=== PATIENT | female | born 1990 | race Caucasian/White ===

== ENCOUNTER 2020-01-06 07:15 | Inpatient (IN) | payer MEDICAID ==
[~2020-01-06] VITALS: Ht 162.6 cm; Wt 90.7 kg
[2020-01-06 08:39] LABS: HEMOGLOBIN 9.4 g/dL (12-16); MCH 24.9 pg (26.0-34.0); MCHC 30.3 g/dL (31.0-37.0); MCV 82.2 fL (80.0-100.0); MEAN PLATELET VOLUME 9.7 fL (7.4-10.4); RBC 3.77 10x6/uL (4.00-5.40); RDW 16.1 % (11.5-14.5); WBC 10.2 10x3/uL (4.8-10.8)
[2020-01-06 08:41] LABS: BILIRUBIN NEGATIVE (NEGATIVE); GLUCOSE NEGATIVE (NEGATIVE); KETONE NEGATIVE (NEGATIVE); NITRITE NEGATIVE (NEGATIVE); SPECIFIC GRAVITY 1.015 (1.005-1.020); UROBILINOGEN NORMAL (NORMAL)
[2020-01-06 08:59] LABS: UDS - AMPHET NEGATIVE QUAL (NEGATIVE); UDS - BARB NEGATIVE QUAL (NEGATIVE); UDS - BENZO NEGATIVE QUAL (NEGATIVE); UDS - COCAINE NEGATIVE QUAL (NEGATIVE); UDS - OPIATE NEGATIVE QUAL (NEGATIVE); UDS - PCP NEGATIVE QUAL (NEGATIVE); UDS - THC POSITIVE QUAL (NEGATIVE)
[2020-01-06] MEDS ORDERED: PRENAVITE1 TAB PO (15:04)
--- NOTE | 2020-01-06 18:20 | MORECARE ---
CASE MANAGEMENT DISCHARGE SUMMARY PATIENT: RADHA LOPEZ UNIT: [id number] ADM DATE: 01/06/20 AGE: 29 : 90 SEX: F ROOM/BED: D.1276 AUTHOR: REBECA HOLLY PHYSICIAN: REFERRING PHYSICIAN: JORJE FUNES DO DATE OF SERVICE: 01/06/20 Discharge Plan Patient Name: RADHA LOPEZ Facility: [facility]:[place] : 1990 Planned Disposition: Home Anticipated Discharge Date: Discharge Date: Expected LOS: 0 Initial Reviewer: [email or web address] Initial Review Date: 01/06/2020 Generated: 01/06/20 7:20 pm Patient Name: RADHA LOPEZ Page [id number] at 1820 All edits/amendments must be made on the electronic document DICTATION DATE: 01/06/201819 PAINT LABORATORY TECHNICIAN: ARAM 01/06/201819 RPT#: [id number] DC DATE: STATUS: ADM IN [facility] [address] [place] [address] END OF REPORT
[2020-01-06] MEDS ORDERED: TUMS X-STR300 MG PO (22:14)
[2020-01-06 22:15] VITALS: BP 113/67; Ht 162.6 cm; Wt 90.7 kg
[2020-01-07 06:09] LABS: RAPID PLASMA REAGIN Non Reactive (Non Reactive)
[2020-01-07 07:13] LABS: HEPATITIS C ANTIBODY <0.1 S/CO RAT (0.0-0.9)
[2020-01-07 10:10] LABS: RUBELLA IGG 2.55 index (Immune >0.99)
[2020-01-07 15:11] LABS: HGB SOLUBILITY (SICKLE SCREEN) Negative (Negative)
--- NOTE | 2020-01-07 16:00 | NUR ---
transfered to room 1278 via w/c. tolerated well. eating reg diet. states feels better- not cramping as much as earlier.
[2020-01-07 19:25] VITALS: BP 127/67
--- NOTE | 2020-01-07 19:25 | NUR ---
ASSESSMENT PER FLOW SHEET, VS OBTAINED, SALINE LOCK IN LEFT HAND/WRIST INTACT WITH NO REDNESS OR EDEMA, FF, ML, U/1, LITE BLEEDING NOTED, PT DENIES CLOTS, PT REPORTS FLATUS, NO BM AND VOIDING WITH NO DIFFICULTY, PT DENIES PAIN, REQUESTED AND SERVED FRESH H20, DENIES FURTHER NEEDS, BED IN LOW POSITION, SIDE RAILS X 2, CALL LIGHT IN REACH
--- NOTE | 2020-01-07 21:03 | NUR ---
PT AWAKE, DENIES PAIN, REQUESTED AND SERVED FRESH 02, OJ, AND LEMON LUMBEE SODA, PT DENIES FURTHER NEEDS
--- NOTE | 2020-01-07 21:16 | NUR ---
NICOTINE PATCH APPLIED TO LEFT ARM
--- NOTE | 2020-01-07 22:00 | NUR ---
PT AROUSES TO OPENING OF DOOR, INFANT TO ROOM VIA OPEN CRIB CART, BANDS CHECKED, PT REPORTS TAKING A SHOWER, DENIES NEEDS AT THIS TIME
--- NOTE | 2020-01-08 00:07 | NUR ---
PT GUIDE ALPINE LIGHT, PT C/O CRAMPING, ADM MOTRIN PER MD ORDERS, SEE EMAR, PT REQUESTED AND SERVED COLA, DENIES FURTHER NEEDS, IN OPEN CRIB CART AT BEDSIDE
--- NOTE | 2020-01-08 00:56 | NUR ---
PT AWAKE, HOLDING , REPORTS CHANGING DIRTY DIAPER, INFORMED PT THAT NSY NURSE NEEDS TO CHECK INFANTS BS, PT VERBALIZES UNDERSTANDING, PT RATES CRAMPING 1/, DENIES NEEDS AT THIS TIME, TO NSY VIA OPEN CART CRIB CART, REPORT TO ABRAHAM PICKENS RN THAT PT CHANGED A DIRTY DIAPER
--- NOTE | 2020-01-08 02:45 | NUR ---
PT RESTING WITH EYES CLOSED, RESP QUIET, NO DISTRESS NOTED, LEFT UNDISTURBED AT THIS TIME
--- NOTE | 2020-01-08 04:39 | NUR ---
PT RESTING WITH EYES CLOSED, RESP QUIET, NO DISTRESS NOTED, LEFT UNDISTURBED AT THIS TIME
--- NOTE | 2020-01-08 05:45 | NUR ---
PT INDUSTRIAL ILLUMINATING ENGINEER LIGHT, C/O WU, INFORMED PT THAT IT WAS NOT TIME FOR MOTRIN, BUT I WILL ADM IN ABOUT 20 MINUTES, PT VERBALIZES UNDERSTANDING, REQUESTED AND SERVED COLA, DENIES FURTHER NEEDS AT THIS TIME
[2020-01-08 06:05] LABS: BASOPHILS 0.1 % (0-2); EOSINOPHILS 1.1 % (0-7); HEMATOCRIT 25.5 % (36.0-48.0); HEMOGLOBIN 7.6 g/dL (12-16); IMMATURE GRANULOCYTES 0.8 % (0-5); MCH 24.8 pg (26.0-34.0); MCHC 29.8 g/dL (31.0-37.0); MCV 83.1 fL (80.0-100.0); MEAN PLATELET VOLUME 9.9 fL (7.4-10.4); MONOCYTES 8.5 % (2-11); NEUTROPHILS 65.5 % (40-80); PLATELET COUNT 173 10x3/uL (130-400); RBC 3.07 10x6/uL (4.00-5.40); RDW 16.3 % (11.5-14.5)
--- NOTE | 2020-01-08 06:17 | NUR ---
PT AROUSES TO OPENING OF DOOR, C/O WU, ADM MOTRIN PER MED ORDERS WITH COLA, PT DENIES FURTHER NEEDS
[2020-01-08 06:27] LABS: WBC 14.4 10x3/uL (4.8-10.8)
--- NOTE | 2020-01-08 07:15 | NUR ---
SHIFT REPORT TO DAY SHIFT
--- NOTE | 2020-01-08 07:26 | NUR ---
RN TO ROOM. RESTING WITH EYES CLOSED IN SEMI-FOWLERS. RESP REGULAR AND UNLABORED, NO S/S OF DISTRESS NOTED. BED IN LOW POSITION WITH SRUP X2. CALL LIGHT AND PHONE WITHIN REACH. PT NOT DISTURBED TO ALLOW FOR REST.
--- NOTE | 2020-01-08 09:10 | NUR ---
DR. FUNES NOTIFIED OF REPORT REC'D FROM PM SHIFT REGARDING PT'S C/O HEADACHE.
[2020-01-08 09:30] VITALS: BP 127/61
--- NOTE | 2020-01-08 09:30 | NUR ---
SHIFT ASSESSMENT COMPLETED PER FLOWSHEET. VSS. FUNDUS FIRM, MIDLINE AND U2 WITH SMALL AMT RUBRA LOCHIA, NO CLOTS NOTED. REPORTS VOIDING AND PASSING FLATUS WITHOUT DIFFICULTY. C/O CONSTANT HEADACHE, REPORTS TO RN THAT IT STARTED FOLLOWING HAVING NICOTINE PATCH PLACED AND HAS BEEN CONSTANT SINCE THEN, STATE THAT SHE TOOK NICOTINE PATCH OFF ALREADY. STATES THAT LIGHTS AND ACTIVITY DO NOT AFFECT HEADACHE, DENIES RELIEF OF HEADACHE WHEN LAYING FLAT. SEE EMAR FOR INTERVENTIONS. PT EDUCATED ON MEDS, DENIES QUESTIONS. POC DISCUSSED WITH PT, VERBALIZES UNDERSTANDING AND DENIES QUESTIONS. BED IN LOW POSITION WITH SRUP X2. CALL LIGHT AND PHONE WITHIN REACH. WILL CONTINUE TO MONITOR.
--- NOTE | 2020-01-08 10:12 | NUR ---
PAIN REASSESSMENT COMPLETED. PT RESTING WITH EYES CLOSED. RESP REGULAR AND UNLABORED, NO S/S OF DISTRESS NOTED. BED IN LOW POSITION WITH SRUP X2. CALL LIGHT AND PHONE WITHIN REACH. WILL CONTINUE TO MONITOR.
--- NOTE | 2020-01-08 10:41 | MORECARE ---
CASE MANAGEMENT DISCHARGE SUMMARY PATIENT: RADHA LOPEZ UNIT: [id number] ADM DATE: 01/06/20 AGE: 29 : 90 SEX: F ROOM/BED: D.1278 AUTHOR: REBECA HOLLY PHYSICIAN: REFERRING PHYSICIAN: JORJE FUNES DO DATE OF SERVICE: 01/08/20 Discharge Plan Patient Name: RADHA LOPEZ [facility] [facility] 1990 Planned Disposition: Home Anticipated Discharge Date: 01/08/20 Discharge Date: Expected LOS: 2 Initial Reviewer: [email or web address] Initial Review Date: 01/06/2020 Generated: 01/08/20 11:40 am Last DP export: 01/06/20 5:20 p Patient Name: RADHA LOPEZ Page 88577 at 1041 All edits/amendments must be made on the electronic document DICTATION DATE: 01/08/20 1040 DENTAL EQUIPMENT INSTALLER AND SERVICER: DM 01/08/20 1040 RPT#: [id number] DC DATE: STATUS: ADM IN [facility] [address] [place] [address] END OF REPORT
--- NOTE | 2020-01-08 10:50 | NUR ---
RISA KAUFMAN CALLS UNIT REPORTS THAT PT INSURANCE WILL COVER LOVENOX AND IT HAS BEEN CALLED IN BY HER PER MD ORDER.
--- NOTE | 2020-01-08 10:50 | MORECARE ---
CASE MANAGEMENT DISCHARGE SUMMARY PATIENT: RADHA LOPEZ UNIT: [id number] ADM DATE: 01/06/20 AGE: 29 : 90 SEX: F ROOM/BED: D.1278 AUTHOR: REBECA HOLLY PHYSICIAN: REFERRING PHYSICIAN: JORJE FUNES DO DATE OF SERVICE: 01/08/20 Discharge Plan Patient Name: RADHA LOPEZ Facility: [facility]:[place] : 1990 Planned Disposition: Home Anticipated Discharge Date: 01/08/20 Discharge Date: Expected LOS: 2 Initial Reviewer: [email or web address] Initial Review Date: 01/06/2020 Generated: 01/08/20 11:49 am Last DP export: 01/08/20 9:41 a Patient Name: RADHA LOPEZ Page 22270 at 1050 All edits/amendments must be made on the electronic document DICTATION DATE: 01/08/20 1049 MINE EXPERT: DM 01/08/20 1049 RPT#: [id number] DC DATE: STATUS: ADM IN [facility] [address] [place] [address] END OF REPORT
--- NOTE | 2020-01-08 10:58 | MORECARE ---
CASE MANAGEMENT DISCHARGE SUMMARY PATIENT: RADHA LOPEZ UNIT: [id number] ADM DATE: 01/06/20 AGE: 29 : 90 SEX: F ROOM/BED: D.1278 AUTHOR: REBECA HOLLY PHYSICIAN: REFERRING PHYSICIAN: JORJE FUNES DO DATE OF SERVICE: 01/08/20 Discharge Plan Patient Name: RADHA LOPEZ [facility] [facility] 1990 Planned Disposition: Home Anticipated Discharge Date: 01/08/20 Discharge Date: Expected LOS: 2 Initial Reviewer: [email or web address] Initial Review Date: 01/06/2020 Generated: 01/08/20 11:57 am DCP- Discharge Planning Updated by [email or web address]: Nafisa Steele on 01/08/20 9:[address] CM contacted Dr. Funes regarding Lovenox, order obtained.. Lovenox 40 mg SQ QD X6 weeks called to [facility] #[phone]. The pharmacy, at present has a 30 day supply, which is the length of time that Medicaid will cover. Patient's Medicaid will cover the cost, with possible co-pay, according to type of Medicaid the patient has. L/D nurse and patient notified of same. Last DP export: 01/08/20 9:50 a Patient Name: RADHA LOPEZ Page 35084 at 1058 All edits/amendments must be made on the electronic document DICTATION DATE: 01/08/20 105 IOS ARCHITECT: ARAM 01/08/20 1057 RPT#: [id number] DC DATE: STATUS: ADM IN [facility] [address] [facility] [place] [address] END OF REPORT
--- NOTE | 2020-01-08 11:42 | MORECARE ---
CASE MANAGEMENT DISCHARGE SUMMARY PATIENT: RADHA LOPEZ UNIT: [id number] ADM DATE: 01/06/20 AGE: 29 : 90 SEX: F ROOM/BED: D.1278 AUTHOR: REBECA HOLLY PHYSICIAN: REFERRING PHYSICIAN: JORJE FUNES DO DATE OF SERVICE: 01/08/20 Discharge Plan Patient Name: RADHA LOPEZ [facility] [facility] 1990 Planned Disposition: Home Anticipated Discharge Date: 01/08/20 Discharge Date: Expected LOS: 2 Initial Reviewer: [email or web address] Initial Review Date: 01/06/2020 Generated: 01/08/20 12:42 pm Comments DCP- Discharge Planning Updated by [email or web address]: Nafisa Steele on 01/08/20 10:[address] CM contacted Dr. Funes regarding Lovenox, order obtained.. Lovenox 40 mg SQ QD X6 weeks called to [facility] #[phone]. The pharmacy, at present has a 30 day supply, which is the length of time that Medicaid will cover. Patient's Medicaid will cover the cost, with possible co-pay, according to type of Medicaid the patient has. L/D nurse and patient notified of same. CM contacted [facility] tamar Levy with Pharmacist regarding patient's co-pay. Either $.50, $1.00 or $3.00 will be the patient's copay. Notified patient of same. Last DP export: 01/08/20 9:58 a Patient Name: RADHA LOPEZ Page [phone] at 1142 All edits/amendments must be made on the electronic document DICTATION DATE: 01/08/20 1142 DOMINATRIX: ARAM 01/08/20 1142 RPT#: [id number] DC DATE: STATUS: ADM IN [facility] [address] [place] [address] END OF REPORT
--- NOTE | 2020-01-08 11:59 | MORECARE ---
CASE MANAGEMENT DISCHARGE SUMMARY PATIENT: RADHA LOPEZ UNIT: [id number] ADM DATE: 01/06/20 AGE: 29 : 90 SEX: F ROOM/BED: D.1278 AUTHOR: REBECA HOLLY PHYSICIAN: REFERRING PHYSICIAN: JORJE FUNES DO DATE OF SERVICE: 01/08/20 Discharge Plan Patient Name: RADHA LOPEZ [facility] [facility] 1990 Planned Disposition: Home Anticipated Discharge Date: 01/08/20 Discharge Date: Expected LOS: 2 Initial Reviewer: [email or web address] Initial Review Date: 01/06/2020 Generated: 01/08/20 12:59 pm Comments DCP- Discharge Planning Updated by [email or web address]: Nafisa Steele on 01/08/20 10:[address] CM contacted Dr. Funes regarding Lovenox, order obtained.. Lovenox 40 mg SQ QD X6 weeks called to [facility] #[phone]. The pharmacy, at present has a 30 day supply, which is the length of time that Medicaid will cover. Patient's Medicaid will cover the cost, with possible co-pay, according to type of Medicaid the patient has. L/D nurse and patient notified of same. CM contacted [facility] tamar Levy with Pharmacist regarding patient's co-pay. Either $.50, $1.00 or $3.00 will be the patient's copay. Notified patient of same. Last DP export: 01/08/20 10:42 a Patient Name: RADHA LOPEZ Page 46799 at 1159 All edits/amendments must be made on the electronic document DICTATION DATE: 01/08/20 1159 QC LAB TECHNICIAN: ARAM 01/08/20 1159 RPT#: [id number] DC DATE: STATUS: ADM IN [facility] [address] [place] [address] END OF REPORT
[2020-01-08 12:55] LABS: BASOPHILS 0.1 % (0-2); EOSINOPHILS 1.5 % (0-7); HEMATOCRIT 26.4 % (36.0-48.0); HEMOGLOBIN 7.8 g/dL (12-16); IMMATURE GRANULOCYTES 0.5 % (0-5); LYMPHOCYTES 26.5 % (15-50); MCH 24.6 pg (26.0-34.0); MCHC 29.5 g/dL (31.0-37.0); MCV 83.3 fL (80.0-100.0); MEAN PLATELET VOLUME 9.8 fL (7.4-10.4); MONOCYTES 7.1 % (2-11); NEUTROPHILS 64.3 % (40-80); PLATELET COUNT 183 10x3/uL (130-400); RBC 3.17 10x6/uL (4.00-5.40); RDW 16.2 % (11.5-14.5); WBC 14.5 10x3/uL (4.8-10.8)
--- NOTE | 2020-01-08 13:34 | NUR ---
C/O CONSTANT HEADACHE 12/19, REPORTS THAT FIORCET RELIEVED SLIGHTLY BUT THAT IT NEVER WENT AWAY. STATES THAT IT BEHIND HER EYES STILL. DENIES THAT LAYING FLAT RELIEVES IT. MOTRIN PROVIDED PER PT REQUEST AND ORDER. DR. MAIN ORDERED PER PT REQUEST. DR. AAORN ALSO NOTIFIED OF PT C/O HEADACHE AND INTERVENTIONS DONE. STATES THAT HE WILL COME EVAL.
--- NOTE | 2020-01-08 13:39 | NUR ---
PADS PROVIDED. PT EXPRESSES CONCERN REGARDING HAVING TO PIV FOR BLOOD SUGAR DROPS. NBN CONTACTED AND WILL COME TO ROOM TO ANSWER PT QUESTIONS.
--- NOTE | 2020-01-08 14:15 | NUR ---
PAIN REASSESSMENT COMPLETED. PT REPORTS HEADACHE CONTINUES TO BE 4-5/10 FOLLOWING MOTRIN. STATES THAT LAYING FLAT HAS NOT DECREASED HEADACHE EITHER. DISCUSSED WITH PT TRYING COOL WASH CLOTH TO FOREHEAD AND PT AGREEABLE, LIGHTS OFF. BED IN LOW POSITION WITH SRUP X2. CALL LIGHT AND PHONE WITHIN REACH. PT STATES THAT ACTIVITY DOES NOT INCREASED INTENSITY OF HEADACHE.
--- NOTE | 2020-01-08 14:54 | NUR ---
PT REPORTS THAT HEADACHE CONTINUE EVEN FOLLOWING INTERVENTIONS. WILL NOTIFY DR. FUNES.
--- NOTE | 2020-01-08 15:02 | NUR ---
DR. FUNES NOTIFIED OF CONTINUED C/O HEADACHE AND THAT DR. AARON HAD BEEN NOTIFIED BUT HAD NOT BEEN TO UNIT TO EVAL AT THIS TIME. ORDER REC'D TO BOLUS 1 LITER NS AND FOLLOW UP WITH ANESTHESIA REGARDING EVAL.
--- NOTE | 2020-01-08 15:18 | NUR ---
DR. RÍOS TO ROOM AND AT BEDSIDE DISCUSSING INFANT'S POC WITH PT AND PT'S MOTHER.
--- NOTE | 2020-01-08 15:36 | NUR ---
NS FLUID BOLUS STARTED PER ORDER. PT INSTRUCTED ON LOVENOX INJ AND INCLUDED IN ADMINISTERING MED. PT INSTRUCTED TO WASH HANDS OR USE HAND SANTIZER, PROVIDED WITH HAND SANTIZER. RN DEMONSTRATES TO PT CLEANSING SKIN WITH ETOH PREP. PT OPENED LOVENOX PACK AND REMOVED SAFETY CAP COVERING NEEDLE. PT INSTRUCTED ON SELF INJ AND DEMONSTRATED TO RN PROPER ADMINISTRATION. RN DEMONSTRATED TO PT SAFETY MECHANISM AND RELEASE OF BARREL. PT WILL REQUIRE FURTHER INSTRUCTION AND NEEDS TO DEMONSTRATE TO RN ADDITIONAL LOVENOX NOTED.
--- NOTE | 2020-01-08 16:40 | NUR ---
NS BOLUS COMPLETED AND PIV SL. NO S/S OF INFILTRATION NOTED.
--- NOTE | 2020-01-08 16:54 | NUR ---
DR. AARON CONTACTED REGARDING EVAL FOR HEADACHE, STATES THAT HE GOT CALLED TO CASE, WILL SEND Gabriella XIE CRNA TO EVAL.
--- NOTE | 2020-01-08 16:55 | NUR ---
Gabriella XIE, REBAR BENDER ON UNIT TO RODERICK FERRER
--- NOTE | 2020-01-08 17:01 | NUR ---
Gabriella XIE CRNA OUT OF ROOM. PER Gabriella XIE CRNA HE DID NOT FEEL PT HAD SPINAL HEADACHE.
--- NOTE | 2020-01-08 17:17 | NUR ---
BOTTLE FEEDING . REPORTS THAT HEADACHE IS IMPROVING AT THIS TIME. DENIES NEEDS. FIORICET OFFERED AND DECLINED, STATES THAT IT MADE HER DROWSY AND SHE WANTS TO GAMEZ WITH INFANT PRIOR TO TAKING, WILL NOTIFY RN WHEN READY TO TAKE MED. L WRIST PIV D/C'D WITH TIP INTACT PER PT REQUEST. BANDAID PLACED.
[2020-01-08 20:24] VITALS: BP 125/81
--- NOTE | 2020-01-08 20:33 | NUR ---
PT REC'D ALERT, TEARFUL, SITTING HIGH FOWLERS IN BED, ASSESSMENT COMPLETED, DISCUSSED D/C PLANS. PT STATES IS UNSURE WHERE SHE WILL GO STAY AFTER DISCHARGE DUE TO BEING PUT IN THE CARE OF MOTHER. NO FURTHER NEEDS VOICED
--- NOTE | 2020-01-08 21:31 | NUR ---
pt restful, w/o c/o pain or discomfort, no needs voiced
--- NOTE | 2020-01-08 22:13 | NUR ---
linens taken to room for pt mother to stay at bedside, pt just completed shower, no needs voiced.
--- NOTE | 2020-01-09 00:10 | NUR ---
room check, pt w/o c/o pain or discomfort, requesting to see w/ mother, shown to nsy window to view her infant on warmer, no needs voiced at this time
--- NOTE | 2020-01-09 02:43 | NUR ---
resting quietly in room w/ eyes closed, arouses easily to name called, mother at bedside, no needs voiced
--- NOTE | 2020-01-09 03:26 | NUR ---
orange juice and ice pack provided per pt request. upon entering the room patients mother states "she is hurting" pt states that her head hurts from crying and her eyes are swollen so she wanted to put ice on them. asked her what was wrong and she declined to answer. encouraged her to call with any needs. pt verbalizes understanding.
--- NOTE | 2020-01-09 06:41 | NUR ---
pt resting quietly, respirations even and unlabored, w/o signs of distress, did not disturb
[2020-01-09 07:25] VITALS: BP 129/82
--- NOTE | 2020-01-09 07:29 | NUR ---
AM ASSESSMENT COMPLETED, PT ALERT, SITTING UP IN BED, ORIENTED X4, REQUESTING PRN MED FOR WU ON ENTRY TO ROOM. PRN IBUPROFEN GIVEN AND AFTER DISCUSSING PAIN AND REQUESTS PRN FIORICET WELL; SAME PROVIDED WITH CUP OF ICE WATER, ENCOURAGED PO INTAKE. INFANT IN ROOM IN ROLLING CRIB ADJACENT TO GRANDMOTHER. BONDING NOTED. RESP EVEN AND UNLABORED, LUNGS CTAB, DENIES SOB, HEART RRR WITHOUT AUDIBLE MURMUR, DENIES DIZZINESS, CHEST PAIN, ABD SOFT AND NONTENDER TO FUNDAL CHECK, FUNDUS FIRM U/2 AND MIDLINE, DENIES PASSING CLOTS OR HEAVY LOCHIA, SELF-PERFORMS PERICARE, VOIDING WITHOUT DIFFICULTY, NO BM REPORTED, AGUILA FREELY, NEGATIVE NATHAN'S SIGN B LE, PEDAL PULSES STRONG AND EQUAL BILATERALLY. LIGHTS DIMMED PER PT REQUEST, ENCOURAGED REST. PT STATES DESIRE TO BE DISCHARGED EARLY POSSIBLE TODAY DUE TO NEED TO CARE FOR HER PET. REVIEWED POC TODAY AND ALL QUESTIONS ANSWERED. BREAKFAST TRAY TO PT ROOM. CALL LIGHT IN EASY REACH, BED IN LOW POSITION, SIDE RAILS UP X2, BED BRAKES LOCKED, NIGHT LIGHT ON IN ROOM FOR SAFETY. WILL MONITOR.
--- NOTE | 2020-01-09 08:16 | NUR ---
PAIN REASSESSMENT COMPLETED, PT DENIES WU AT THIS TIME. AGAIN INQUIRING ABOUT DISCHARGE PROCESS FOR TODAY, EXPLAINED THAT THE PHYSICIAN WOULD DETERMINE DISCHARGE ON ROUNDING TODAY; PT STATES UNDERSTANDING AND AGREEABLE TO POC AT THIS TIME.
[2020-01-09] MEDS ORDERED: LOVENOX40 MG/0.4 SC ×2 (08:45→08:53)
--- NOTE | 2020-01-09 09:15 | NUR ---
SPOKE WITH DR FUNES VIA TELEPHONE, RELAYED PT DESIRE TO DISCHARGE HOME AND PLANS FOR BABY TO STAY WITH [facility] APPOINTED GUARDIAN (PT MOTHER). DR FUNES STATES SHE WILL BE IN BEFORE NOON FOR ROUNDS. RELAYED INFORMATION TO PT, PT STATES OKAY.
--- NOTE | 2020-01-09 10:50 | NUR ---
DR FUNES TO UNIT AND ROUNDING; REVIEWED CONTROL OPTIONS AFTER PT INQUIRY REGARDING PERMANENT STERILIZATION, CONSENT WITH SIGNATURES OBTAINED AND FILED PER REQUEST DR FNUES AND PT AND COPY FAXED TO CLINIC. PT NAD, RESP EVEN AND UNLABORED. CALL LIGHT IN EASY REACH. WILL MONITOR.
[2020-01-09] MEDS ORDERED: FERROUS SULFAT325 MG PO (11:19)
[2020-01-09] MEDS ORDERED: BUTALB-APAP-CA1 EACH PO (11:20)
--- NOTE | 2020-01-09 11:45 | NUR ---
discharge instructions reviewed with pt, handouts provided explaining post-hospitalization care, care, reportable signs and symptoms to monitor for, pain management, use of newly prescribed meds with prescriptions provided, and follow-up care requirements and phone number to clinic. pt states understanding of all information provided. pt states her mother has guardianship of and will be caring for infant in a "rooming in status". pt mother signed "rooming in" paperwork per facility policy.
--- NOTE | 2020-01-09 11:55 | NUR ---
PT DISCHARGED VIA WC TO PRIVATE AUTO IN CARE OF HER MOTHER, STABLE CONDTION.
[2020-01-09 13:09] LABS: UDSC - AMPHET Negative ng/mL (Cutoff=1000); UDSC - BARB Negative ng/mL (Cutoff=300); UDSC - BENZO Negative ng/mL (Cutoff=300); UDSC - COC Negative ng/mL (Cutoff=300); UDSC - METH Negative ng/mL (Cutoff=300); UDSC - OPIATES Negative ng/mL (Cutoff=300); UDSC - PCP Negative ng/mL (Cutoff=25); UDSC - PROPOXY Negative ng/mL (Cutoff=300); UDSC - THC Positive (Cutoff=50)
--- NOTE | 2020-01-11 08:47 | MORECARE ---
CASE MANAGEMENT DISCHARGE SUMMARY PATIENT: RADHA LOPEZ UNIT: [id number] ADM DATE: 01/06/20 AGE: 29 : 90 SEX: F ROOM/BED: D.1278 AUTHOR: REBECA HOLLY PHYSICIAN: REFERRING PHYSICIAN: JORJE FUNES DO DATE OF SERVICE: 01/11/20 Discharge Plan Patient Name: RADHA LOPEZ [facility] [facility] 1990 Planned Disposition: Home Anticipated Discharge Date: 01/08/20 Discharge Date: 01/09/2020 Expected LOS: 2 Initial Reviewer: [email or web address] Initial Review Date: 01/06/2020 Generated: 01/11/20 9:47 am Comments DCP- Discharge Planning Updated by [email or web address]: Nafisa Steele on 01/08/20 10:[address] CM contacted Dr. Funes regarding Lovenox, order obtained.. Lovenox 40 mg SQ QD X6 weeks called to [facility] #[phone]. The pharmacy, at present has a 30 day supply, which is the length of time that Medicaid will cover. Patient's Medicaid will cover the cost, with possible co-pay, according to type of Medicaid the patient has. L/D nurse and patient notified of same. CM contacted [facility] tamar Levy with Pharmacist regarding patient's co-pay. Either $.50, $1.00 or $3.00 will be the patient's copay. Notified patient of same. Last DP export: 01/08/20 10:59 a Patient Name: RADHA LOPEZ Page [phone] at 0847 All edits/amendments must be made on the electronic document DICTATION DATE: 01/11/20846 BEAUTICIAN APPRENTICE: ARAM 01/11/20846 RPT#: [id number] DC DATE:01/09/20 STATUS: DIS IN [facility] [address] [place] [address] END OF REPORT
== END 2020-01-09 11:55 | disposition home or self-care (01) | DRG 807 ==
LOC: D.LDO 07:15 → D.LD 14:14
PROVIDERS: ADMIT Student in an Organized Health Care Education/Training Program; ATTEND Student in an Organized Health Care Education/Training Program
PROC: 10E0XZZ Delivery of Products of Conception, External Approach (ICD-10-PCS; principal; 2020-01-07)
DX: O99.334 Smoking (tobacco) complicating childbirth (principal); Z37.0 Single live birth; F17.200 Nicotine dependence, unspecified, uncomplicated; Z3A.40 40 weeks gestation of pregnancy; O66.0 Obstructed labor due to shoulder dystocia; R51 Headache; O90.89 Other complications of the puerperium, not elsewhere classified; O90.81 Anemia of the puerperium; D64.9 Anemia, unspecified

== ENCOUNTER 2021-01-18 14:43 | Observation (INO) | payer OTHER ==
[~2021-01-18] VITALS: Ht 162.6 cm; Wt 72.7 kg
[~2021-01-18 14:43] MED LIST: BUTALB-APAP-CA1 EACH PO; FERROUS SULFAT325 MG PO; LOVENOX40 MG/0.4 SC; PRENAVITE1 TAB PO; TUMS X-STR300 MG PO
[2021-01-18 15:00] LABS: BASOPHILS 0.3 % (0-2); EOSINOPHILS 0.4 % (0-7); HEMATOCRIT 23.5 % (36.0-48.0); HEMOGLOBIN 7.7 g/dL (12-16); LYMPHOCYTES 17.6 % (15-50); MCH 29.5 pg (26.0-34.0); MCHC 32.9 g/dL (31.0-37.0); MCV 89.7 fL (80.0-100.0); MEAN PLATELET VOLUME 6.9 fL (7.4-10.4); MONOCYTES 5.4 % (2-11); NEUTROPHILS 76.3 % (40-80); RBC 2.62 10x6/uL (4.00-5.40); RDW 13.8 % (11.5-14.5); WBC 10.8 10x3/uL (4.8-10.8)
[2021-01-18 15:01] LABS: PLATELET COUNT 327 10x3/uL (130-400)
[2021-01-18 15:14] LABS: CALC OSMOLALITY 274 mosm/kg (275-300); CALCIUM 7.9 mg/dL (8.5-10.1); CARBON DIOXIDE 25.8 mmol/L (21.0-32.0); CHLORIDE - SERUM 106 mmol/L (98-107); CREATININE - SERUM 0.7 mg/dL (0.6-1.3); GLUCOSE 102 mg/dL (74-106); POTASSIUM - SERUM 3.6 mmol/L (3.5-5.1); SODIUM 138 mmol/L (136-145); UREA NITROGEN 10 mg/dL (7-18); eGFR NON AFRICAN AMERICAN > 90 mL/min (90-120)
[2021-01-18 15:16] LABS: HCG SERUM POSITIVE (NEGATIVE)
--- NOTE | 2021-01-18 15:26 | NUR ---
CONSENTS FOR SURGER, BLOOD AND ANESTHESIA SIGNED BY MOTHER, VERBALLY BY PT.
[2021-01-18 15:42] LABS: ALBUMIN 2.9 g/dL (3.4-5.0); ALKALINE PHOSPHATASE 58 U/L (30-120); ALT (SGPT) 28 U/L (10-68); BILIRUBIN - TOTAL 0.24 mg/dL (0.2-1.3); HCG - QUANTITATIVE (MATERNAL) 26527 mIU/mL; PROTEIN - SERUM 6.2 g/dL (6.4-8.2)
[2021-01-18 17:14] LABS: BASOPHILS 0.2 % (0-2); EOSINOPHILS 0.2 % (0-7); HEMATOCRIT 24.6 % (36.0-48.0); HEMOGLOBIN 8.1 g/dL (12-16); IMMATURE GRANULOCYTES 0.2 % (0-5); LYMPHOCYTE ABS# 2.32 10x3/uL (1.18-3.74); LYMPHOCYTES 23.3 % (15-50); MCH 29.8 pg (26.0-34.0); MCHC 32.9 g/dL (31.0-37.0); MCV 90.4 fL (80.0-100.0); MEAN PLATELET VOLUME 9.3 fL (7.4-10.4); MONOCYTES 5.7 % (2-11); NEUTROPHILS 70.4 % (40-80); PLATELET COUNT 215 10x3/uL (130-400); RBC 2.72 10x6/uL (4.00-5.40); RDW 13.4 % (11.5-14.5)
[2021-01-18 17:30] LABS: APTT 21.5 SECONDS (22.8-39.4); INR 1.38 (0.85-1.17); PROTIME 15.8 SECONDS (11.6-15.0)
[2021-01-18 17:31] LABS: CARBON DIOXIDE 22.4 mmol/L (21.0-32.0); CHLORIDE - SERUM 110 mmol/L (98-107); CREATININE - SERUM 0.7 mg/dL (0.6-1.3); SODIUM 138 mmol/L (136-145); UREA NITROGEN 10 mg/dL (7-18); eGFR NON AFRICAN AMERICAN > 90 mL/min (90-120)
[2021-01-18 17:32] LABS: CALC OSMOLALITY 277 mosm/kg (275-300); GLUCOSE 152 mg/dL (74-106); POTASSIUM - SERUM 4.2 mmol/L (3.5-5.1)
[2021-01-18 17:33] LABS: CALCIUM 6.8 mg/dL (8.5-10.1)
--- NOTE | 2021-01-18 18:00 | NUR ---
RECEIVED BY BED FROM RECOVERY ROOM. PT IS DROWSY BUT ABLE TO ANSWER QUESTIONS APPROPRIATELY. IV TO LEFT AC INFUSING PER ORDERS, SHE ALSO HAS SALINE LOCK TO RIGHT AC AND RIGHT WRIST. KING CATH WITH 50ML OF DARK URINE NOTED. SCD BILAT PLACED ON PUMP. RATES PAIN AT 0/10 AT THIS TIME. SIDE RAILS UP X 2 WITH PHONE AND CALL LIGHT IN REACH. LIGHTS TURNED OFF REQUESTED.
[2021-01-18 18:30] VITALS: Ht 162.6 cm; Wt 72.7 kg
[2021-01-18 19:10] VITALS: BP 114/56
--- NOTE | 2021-01-18 19:10 | NUR ---
RCVD BEDSIDE REPORT FROM AM SHIFT. SHIFT ASSESSMENT COMPLETED AT THIS TIME. SEE FLOWSHEET. PT DENIES PAIN. VSS. KING CATH DRAINING TO GRAVITY. PIV TO RT WRIST D/C'D PER Balaji THURSTON RN. PRESSURE DRESSING APPLIED TO SITE. PIV TO RT AC PATENT WITH NO SIGNS OF ERYTHEMA OR EDEMA NOTED TO SITE. PIV TO LEFT WRIST PATENT WITH LR INFUSING VIA ALARIS PUMP. SCD'S IN PLACE BILATERALLY. PUMP ON AND FUNCTIONING. PT DENIES NEEDS CURRENTLY. BED LOW, WHEELS LOCKED, CALL LIGHT AND PHONE WITHIN REACH. SIDE RAILS UP X2.
--- NOTE | 2021-01-18 20:00 | NUR ---
FFP SET TO INFUSE VIA ALARIS PUMP.
--- NOTE | 2021-01-18 20:20 | NUR ---
FFP CONTINUES TO INFUSE AT 200ML/HR. NO S/S OF REACTION NOTED. WILL CONTINUE TO MONITOR.
--- NOTE | 2021-01-18 21:59 | NUR ---
FFP INFUSION COMPLETED. PIV SET TO KVO RATE.
[2021-01-18 22:24] LABS: HEMATOCRIT 23.3 % (36.0-48.0); HEMOGLOBIN 7.7 g/dL (12-16)
--- NOTE | 2021-01-19 | NUR ---
RN TO BEDSIDE. UNIT OF PRBC'S SET TO INFUSE VIA ALARIS PUMP. NO S/S OF TRANSFUSION REACTION NOTED. PT DENIES ANY NEEDS.
--- NOTE | 2021-01-19 01:00 | NUR ---
ROUNDS MADE. PT RESTING QUIETLY. PIV SITES PATENT WITH NO S/S OF ERYTHEMA OR EDEMA NOTED.
[2021-01-19 02:32] LABS: UDS - AMPHET POSITIVE QUAL (NEGATIVE); UDS - BARB NEGATIVE QUAL (NEGATIVE); UDS - BENZO POSITIVE QUAL (NEGATIVE); UDS - COCAINE NEGATIVE QUAL (NEGATIVE); UDS - OPIATE POSITIVE QUAL (NEGATIVE); UDS - PCP NEGATIVE QUAL (NEGATIVE); UDS - THC POSITIVE QUAL (NEGATIVE)
[2021-01-19 02:39] LABS: BILIRUBIN NEGATIVE (NEGATIVE); KETONE NEGATIVE (NEGATIVE); NITRITE NEGATIVE (NEGATIVE); UROBILINOGEN NORMAL mg/dL (< 2)
[2021-01-19 02:40] LABS: BACTERIA FEW HPF (NONE SEEN); SQUAMOUS EPITHELIAL 0-5 HPF (0-4)
--- NOTE | 2021-01-19 03:00 | NUR ---
UNIT OF PRBC'S COMPLETED.
--- NOTE | 2021-01-19 03:25 | NUR ---
MARICEL, PHYSICAL THERAPY ASSISTANT INSTRUCTOR, IN ROOM TO BEGIN TRANSFUSION OF PRBC'S.
--- NOTE | 2021-01-19 05:00 | NUR ---
RN TO BEDSIDE. PT RESTING RT LATERAL WITH EYES CLOSED, RESPIRATIONS EVEN AND UNLABORED. PT LEFT UNDISTURBED.
--- NOTE | 2021-01-19 06:12 | NUR ---
2ND UNIT OF PRBC'S COMPLETED AT THIS TIME. PT STATES SHE'S HUNGRY. ADVISED THAT WE ARE AWAITING LAB RESULTS TO REPORT TO MD BEFORE ADVANCING DIET. UNDERSTANDING VERBALIZED. NO FURTHER NEEDS AT THIS TIME.
--- NOTE | 2021-01-19 06:12 | NUR ---
CURRENT LR INFUSION COMPLETE. OLD BAG DOWN, NEW BAG UP TO PRESENT TUBING AND SET TO INFUSE AT 75ML/HR PER ORDER. SEE EMAR FOR ADMINISTRATION. 2ND UNIT OF PRBC'S COMPLETED AT THIS TIME. PIV TO RT QIAN CLEMENTS.
[2021-01-19 07:27] LABS: BASOPHILS 1.4 % (0-2); EOSINOPHILS 1.8 % (0-7); HEMATOCRIT 26.2 % (36.0-48.0); HEMOGLOBIN 8.9 g/dL (12-16); LYMPHOCYTES 36.8 % (15-50); MCH 29.3 pg (26.0-34.0); MCHC 34.1 g/dL (31.0-37.0); MEAN PLATELET VOLUME 7.3 fL (7.4-10.4); MONOCYTES 7.4 % (2-11); NEUTROPHILS 52.6 % (40-80); PLATELET COUNT 241 10x3/uL (130-400); RBC 3.04 10x6/uL (4.00-5.40)
--- NOTE | 2021-01-19 07:30 | NUR ---
DIETARY SERVES CLEAR LIQUID TRAY. PT DENIES N/V, SHORTNESS OR BREATH, DIZZINESS, OR CHEST PAIN. PT DENIES NEEDING PAIN MEDICATION OR ANYTHING ELSE TO DRINK. PT DENIES ALL OTHER NEEDS. SRUP X2, CALL LIGHT AND PHONE WITHIN REACH.
[2021-01-19 07:37] LABS: INR 1.24 (0.85-1.17); PROTIME 14.5 SECONDS (11.6-15.0)
[2021-01-19 07:48] VITALS: BP 93/54
[2021-01-19 07:48] LABS: APTT 28.3 SECONDS (22.8-39.4)
--- NOTE | 2021-01-19 08:00 | NUR ---
DR. CLINTON ON UNIT, TO ROOM TO SPEAK WITH PT REGARDING PLAN OF CARE. MD REMOVES VAG PACKING, NO BRIGHT RED BLEEDING NOTED ON PACKING, LIGHT BROWN DISCHARGE NOTED ON PACKING. NO CLOTS NOTED.
--- NOTE | 2021-01-19 08:15 | NUR ---
KING CATH DC'D INTACT WITH TOTAL OF 500 MLS CLEAR, DARK YELLOW URINE. PERICARE DONE WITH WARM WET WASHCLOTHS, PERIPADS PLACED. SRUP X2,CALL LIGHT AND PHONE WITHIN REACH.
--- NOTE | 2021-01-19 11:30 | NUR ---
DR. CLINTON AT [facility], INFORMED MD PT REFUSED IV FLAGYL, VERBAL ORDER RECEIVED TO ADM PO FLAGYL, AND PT REQUESTED IV TO BE TAKEN OUT. WILL D/C IV AT THIS TIME.
--- NOTE | 2021-01-19 11:30 | NUR ---
IV DC'D WITH CATH INTACT. PT LUPE WELL.
[2021-01-19] MEDS ORDERED: FLAGYL500 MG PO (12:20)
[2021-01-19] MEDS ORDERED: IBUPROFEN800 MG PO (12:21)
--- NOTE | 2021-01-19 12:30 | NUR ---
DISCHARGE INSTRUCTIONS EXPLAINED TO PT, COPIES PROVIDED TO PT OF D/C INSTRUCTIONS, AND PP INSTRUCTIONS. PT STATES SHE DOESN'T WANT ANY OTHER PAPERWORK PROVIDED FOR HER UPON DISCHARGE, STATES "I'LL JUST LET YOU KEEP THOSE, I'D RATHER NOT HAVE THEM". PT INFORMED DR. CLINTON WILL SEND OVER FLAGYL, [facility]BU[facility]OFEN [facility] PT STATES "MY RIDE IS HERE AND THEY ARE GOING TO LEAVE ME, SO I REALLY NEED TO GO NOW".
--- NOTE | 2021-01-19 12:35 | NUR ---
PT OFF UNIT AMBULATORY IN STABLE CONDITION, PT ESCORTED TO PRIVATE VEHICLE.
--- NOTE | 2021-01-19 16:51 | MORECARE ---
CASE MANAGEMENT DISCHARGE SUMMARY PATIENT: RADHA LOPEZ UNIT: [id number] ADM DATE: 01/18/21 AGE: 30 : 90 SEX: F ROOM/BED: D.1273 AUTHOR: ELAYNE,DOC PHYSICIAN: REFERRING PHYSICIAN: MARGO CLINTON DO DATE OF SERVICE: 01/19/21 Case Management Discharge Planning Summary DCP REVIEW SUMMARY ANTICIPATED D/C DATE: 01/19/2021 EXPECTED LOS : 1 CASE STATUS: DCP Complete INITIAL REVIEW: 01/19/2021 INITIAL REVIEWER: Sarah Tucker FINAL DISCHARGE DISPOSITION: : FINAL REVIEWER: FINAL REVIEW DATE: DCP Focus Questions & Answers DCP Screen QUESTION: ANSWER High Risk Factors: : None Walking limitation: Patient stated self rated walking limitation present? : No Age: : 18 - 44 Prior living environment: : Lives with others Disability ranking: : Grade 1: No significant disability DCP Evaluation QUESTION: ANSWER Patient's ability to cope with chronic illness : d. No chronic illness Would patient like to participate in any Care Coordination programs (if applicable): : Not applicable Mental health screen: : No mental health history DCP Re-evaluation QUESTION: ANSWER Would patient like to participate in any Care Coordination programs (if applicable): : Not applicable PATIENT: RADHA LOPEZ ENCOUNTER: [id number] MEDICAL RECORD#: [id number] ADMISSION DATE: 01/18/2021 DISCHARGE DATE: ATTENDING MD: TIFFANIE: AGE: 30 MARITAL STATUS: S DC PLAN ID: [id number] FACILITY: [facility] PRINTED ON: 01/19/21 16:50 CT All edits/amendments must be made on the electronic document DICTATION DATE: 01/19/211649 BORDER PATROL OFFICER: ARAM 01/19/211649 RPT#: [id number] DC DATE: STATUS: ADM IN [facility] [address] [place] [address] END OF REPORT
--- NOTE | 2021-01-19 17:19 | MORECARE ---
CASE MANAGEMENT DISCHARGE SUMMARY PATIENT: RADHA LOPEZ UNIT: [id number] ADM DATE: 01/18/21 AGE: 30 : 90 SEX: F ROOM/BED: D.1273 AUTHOR: ELAYNEDOC PHYSICIAN: REFERRING PHYSICIAN: MARGO CLINTON DO DATE OF SERVICE: 01/19/21 Case Management Discharge Planning Summary DCP REVIEW SUMMARY ANTICIPATED D/C DATE: 01/19/2021 EXPECTED LOS : 1 CASE STATUS: DCP Complete INITIAL REVIEW: 01/19/2021 INITIAL REVIEWER: Sarah Tucker FINAL DISCHARGE DISPOSITION: : FINAL REVIEWER: FINAL REVIEW DATE: DCP Focus Questions & Answers DCP Screen QUESTION: ANSWER High Risk Factors: : None Walking limitation: Patient stated self rated walking limitation present? : No Age: : 18 - 44 Prior living environment: : Lives with others Disability ranking: : Grade 1: No significant disability DCP Evaluation QUESTION: ANSWER Patient and/or caregiver agree upon recommended discharge plan? : Yes Family / Caregiver's ability to cope with chronic illness: : a. Adequate (ability to meet patient's medical needs, ensures patient attends medical appts.) Patient's current cognitive status: : *Oriented to person, place, situation, time and present Patient's ability to cope with chronic illness : d. No chronic illness Does the patient have the ability to pay for or attain post discharge needs / services? : Yes Functional screen assessment: : Basic needs can adequately be met by self Family / Caregiver's ability to cope with chronic illness: : a. Adequate (ability to meet patient's medical needs, ensures patient attends medical appts.) Physical Status: : Independent with ADL's Equipment needed for post hospitalization: : None Is there a likelihood that the patient will require additional services to return to the preadmission environment? : No Living Arrangements: : Home with Spouse/Significant Other Results of this evaluation have been discussed with: : Patient Patient with capacity for self-care or can be cared for in same environment as prior to hospitalization? : Yes Baseline cognitive status: : *Oriented to person, place, situation, time and present Physical environment modification needed / anticipated for discharge: : No Preadmission facility can/cannot provide post hospital level of care needs: : Can - at same level of care as preadmission Medication Management: : Patient states can afford medications Planned post hospital services available for patient? : N/A Pharmacy name(s): : [facility] Planned post hospital services covered by insurance plan? : N/A Does Patient have transportation to get home and to follow-up medical appointments when discharged from the hospital? : Yes Would patient like to participate in any Care Coordination programs (if applicable): : Not applicable Does the patient have electricity at home? : Yes Does the patient have running water in their house? : Yes Equipment in use: : None Mental health screen: : No mental health history Psychosocial status: : Independent adult (18-64) Abuse/Neglect: : None Resources / Services in place: : None DCP Re-evaluation QUESTION: ANSWER Would patient like to participate in any Care Coordination programs (if applicable): : Not applicable PATIENT: RADHA LOPEZ ENCOUNTER: [id number] MEDICAL RECORD#: [id number] ADMISSION DATE: 01/18/2021 DISCHARGE DATE: ATTENDING MD: TIFFANIE: AGE: 30 MARITAL STATUS: S DC PLAN ID: [id number] FACILITY: [facility] PRINTED ON: 01/19/21 17:19 CT All edits/amendments must be made on the electronic document DICTATION DATE: 01/19/211718 CAD DRAFTSMAN: ARAM 01/19/211718 RPT#: [id number] DC DATE: STATUS: ADM IN [facility] [address] [place] [address] END OF REPORT
--- NOTE | 2021-01-19 17:44 | MORECARE ---
CASE MANAGEMENT DISCHARGE SUMMARY PATIENT: RADHA LOPEZ UNIT: [id number] ADM DATE: 01/18/21 AGE: 30 : 90 SEX: F ROOM/BED: D.2413 AUTHOR: ELAYNE,DOC PHYSICIAN: REFERRING PHYSICIAN: MARGO CLINTON DO DATE OF SERVICE: 01/19/21 Case Management Discharge Planning Summary COMMENTS ENTERED DATE: 01/19/21 17:10 CT COMMENT TYPE: Discharge Planning REVIEWER: Sarah Tucker Late entry for 11:15 CM met with patient to discuss discharge planning / needs. CM discussed availability of home health, rehab services, and medical equipment. Patient states she plans to discharge to home where she lives with her boyfriend and 3 out of 4 of her children. States she has a 7yr old, 4yrs old, 2yr old, and 1yr old. States her 4yr old lives in [place] with the child's father. States the home environment is safe. When CM asked patient what brought her to the hospital patient informed CM that she attempted to use [facility] to [facility] her but it was going to cost her $715.00. So she searched online for an alternative and found a web site "[facility]" that was an online pharmacy based in [place] that charged her $400.00 for an "MTP Kit". States the kit had two medications. Mifepristone 200mg and Misoprostol 200mg. States the directions stated to take the 1 tab of Mifepristone and then 24 hours later to take the 4 tablets of Misoprostol. States she took the first medication and the second medication late Saturday night. States on Saturday she started hemorrhaging and became light headed. States she called her boyfriend and told him what was going on and that she was going to lay down for a little while. States when her boyfriend came home and saw the condition she was in that he called an ambulance. When CM asked more information about the "[facility]" web site and if a doctor sent the online pharmacy a prescription for the medication the patient stated that "[facility] had a doctor call her and talk to her before they sent her the medicine. CM asked if she ever saw a doctor and had a medical exam she replied no. But she did get an invoice from both "[facility]" and the physician and that she paid for it with her Pay Pal account. CM asked how far along she was in her . Patient states she was about 6 weeks . States her last period was about two months ago but she doesn't really keep track of her periods. But add that she knew she was not any further along than two months. CM asked how patient knew she was . Did she take a test or see a doctor. Patient states she just knew from having 4 other kids. States she was trying to keep the a secret from her family because she was not planning to keep the baby. CM asked patient how she was feeling now. Patient states she felt very energetic. Denies any signs of depression. CM gave patient information on [facility] with walk in hours for counseling if she starts to feel depressed. Patient verbalized understanding and denies any discharge planning needs at this time. States her boyfriend's grandmother, Charito Stovall, will be here around 12:00 to take her home. CM reported above findings to nurseSandrine, and Professor Of French, Monika Perez. Monika Perez informed CM that it was okay to proceed with discharge. CM informed nurse, Sandrine. [facility] REVIEW SUMMARY ANTICIPATED D/C DATE: 01/19/2021 EXPECTED LOS : 1 CASE STATUS: NYP Complete INITIAL REVIEW: 01/19/2021 INITIAL REVIEWER: Sarah Tucker FINAL DISCHARGE DISPOSITION: : FINAL REVIEWER: FINAL REVIEW DATE: NYP Focus Questions & Answers DCP Screen QUESTION: ANSWER High Risk Factors: : None Walking limitation: Patient stated self rated walking limitation present? : No Age: : 18 - 44 Prior living environment: : Lives with others Disability ranking: : Grade 1: No significant disability DCP Evaluation QUESTION: ANSWER Patient and/or caregiver agree upon recommended discharge plan? : Yes Family / Caregiver's ability to cope with chronic illness: : a. Adequate (ability to meet patient's medical needs, ensures patient attends medical appts.) Patient's current cognitive status: : *Oriented to person, place, situation, time and present Patient's ability to cope with chronic illness : d. No chronic illness Does the patient have the ability to pay for or attain post discharge needs / services? : Yes Functional screen assessment: : Basic needs can adequately be met by self Family / Caregiver's ability to cope with chronic illness: : a. Adequate (ability to meet patient's medical needs, ensures patient attends medical appts.) Physical Status: : Independent with ADL's Equipment needed for post hospitalization: : None Is there a likelihood that the patient will require additional services to return to the preadmission environment? : No Living Arrangements: : Home with Spouse/Significant Other Results of this evaluation have been discussed with: : Patient Patient with capacity for self-care or can be cared for in same environment as prior to hospitalization? : Yes Baseline cognitive status: : *Oriented to person, place, situation, time and present Physical environment modification needed / anticipated for discharge: : No Preadmission facility can/cannot provide post hospital level of care needs: : Can - at same level of care as preadmission Medication Management: : Patient states can afford medications Planned post hospital services available for patient? : N/A Pharmacy name(s): : [facility] Planned post hospital services covered by insurance plan? : N/A Does Patient have transportation to get home and to follow-up medical appointments when discharged from the hospital? : Yes Would patient like to participate in any Care Coordination programs (if applicable): : Not applicable Does the patient have electricity at home? : Yes Does the patient have running water in their house? : Yes Equipment in use: : None Mental health screen: : No mental health history Psychosocial status: : Independent adult (18-64) Abuse/Neglect: : None Resources / Services in place: : None DCP Re-evaluation QUESTION: ANSWER Would patient like to participate in any Care Coordination programs (if applicable): : Not applicable PATIENT: RADHA LOPEZ ENCOUNTER: [id number] MEDICAL RECORD#: [id number] ADMISSION DATE: 01/18/2021 DISCHARGE DATE: ATTENDING MD: TIFFANIE: AGE: 30 MARITAL STATUS: S DC PLAN ID: [id number] FACILITY: [facility] PRINTED ON: 01/19/21 17:44 CT All edits/amendments must be made on the electronic document DICTATION DATE: 01/19/211743 LEAD DESIGNER: ARAM 01/19/211743 RPT#: [id number] DC DATE: STATUS: ADM IN [facility] [address] [place] [address] END OF REPORT
--- NOTE | 2021-01-19 19:03 | MORECARE ---
CASE MANAGEMENT DISCHARGE SUMMARY PATIENT: RADHA LOPEZ UNIT: [id number] ADM DATE: 01/18/21 AGE: 30 : 90 SEX: F ROOM/BED: D.0453 AUTHOR: ELAYNE,DOC PHYSICIAN: REFERRING PHYSICIAN: MARGO CLINTON DO DATE OF SERVICE: 01/19/21 Case Management Discharge Planning Summary COMMENTS ENTERED DATE: 01/19/21 17:10 CT COMMENT TYPE: Discharge Planning REVIEWER: Sarah Tucker Late entry for 11:15 CM met with patient to discuss discharge planning / needs. CM discussed availability of home health, rehab services, and medical equipment. Patient states she plans to discharge to home where she lives with her boyfriend and 3 out of 4 of her children. States she has a 7yr old, 4yrs old, 2yr old, and 1yr old. States her 4yr old lives in [place] with the child's father. States the home environment is safe. When CM asked patient what brought her to the hospital patient informed CM that [facility] her but it was going to cost her $715.00. So she searched online for an alternative and found a web site "[facility]" that was an online pharmacy based in [place] that charged her $400.00 for an "MTP Kit". States the kit had two medications. Mifepristone 200mg and Misoprostol 200mg. States the directions stated to take the 1 tab of Mifepristone and then 24 hours later to take the 4 tablets of Misoprostol. States she took the first medication and the second medication late Saturday night. States on Saturday she started hemorrhaging and became light headed. States she called her boyfriend and told him what was going on and that she was going to lay down for a little while. States when her boyfriend came home and saw the condition she was in that he called an ambulance. When CM asked more information about the "[facility]" web site and if a doctor sent the online pharmacy a prescription for the medication the patient stated that "[facility] had a doctor call her and talk to her before they sent her the medicine. CM asked if she ever saw a doctor and had a medical exam she replied no. But she did get an invoice from both [facility]" and the physician and that she paid for it with her Pay Pal account. CM asked how far along she was in her . Patient states she was about 6 weeks . States her last period was about two months ago but she doesn't really keep track of her periods. But add that she knew she was not any further along than two months. CM asked how patient knew she was . Did she take a test or see a doctor. Patient states she just knew from having 4 other kids. States she was trying to keep the a secret from her family because she was not planning to keep the baby. CM asked patient how she was feeling now. Patient states she felt very energetic. Denies any signs of depression. CM gave patient information on [facility] with walk in hours for counseling if she starts to feel depressed. Patient verbalized understanding and denies any discharge planning needs at this time. States her boyfriend's grandmother, Charito Stovall, will be here around 12:00 to take her home. CM reported above findings to nurseSandrine, and Candy Cutter Machine, Monika Perez. Monika Perez informed CM that it was okay to proceed with discharge. CM informed nurse, Sandrine. [facility] REVIEW SUMMARY ANTICIPATED D/C DATE: 01/19/2021 EXPECTED LOS : 1 CASE STATUS: IAP Complete INITIAL REVIEW: 01/19/2021 INITIAL REVIEWER: Sarah Tucker FINAL DISCHARGE DISPOSITION: : FINAL REVIEWER: FINAL REVIEW DATE: IAP Focus Questions & Answers DCP Screen QUESTION: ANSWER High Risk Factors: : None Walking limitation: Patient stated self rated walking limitation present? : No Age: : 18 - 44 Prior living environment: : Lives with others Disability ranking: : Grade 1: No significant disability DCP Evaluation QUESTION: ANSWER Patient and/or caregiver agree upon recommended discharge plan? : Yes Family / Caregiver's ability to cope with chronic illness: : a. Adequate (ability to meet patient's medical needs, ensures patient attends medical appts.) Patient's current cognitive status: : *Oriented to person, place, situation, time and present Patient's ability to cope with chronic illness : d. No chronic illness Does the patient have the ability to pay for or attain post discharge needs / services? : Yes Functional screen assessment: : Basic needs can adequately be met by self Family / Caregiver's ability to cope with chronic illness: : a. Adequate (ability to meet patient's medical needs, ensures patient attends medical appts.) Physical Status: : Independent with ADL's Equipment needed for post hospitalization: : None Is there a likelihood that the patient will require additional services to return to the preadmission environment? : No Living Arrangements: : Home with Spouse/Significant Other Results of this evaluation have been discussed with: : Patient Patient with capacity for self-care or can be cared for in same environment as prior to hospitalization? : Yes Baseline cognitive status: : *Oriented to person, place, situation, time and present Physical environment modification needed / anticipated for discharge: : No Preadmission facility can/cannot provide post hospital level of care needs: : Can - at same level of care as preadmission Medication Management: : Patient states can afford medications Planned post hospital services available for patient? : N/A Pharmacy name(s): : [facility] Planned post hospital services covered by insurance plan? : N/A Does Patient have transportation to get home and to follow-up medical appointments when discharged from the hospital? : Yes Would patient like to participate in any Care Coordination programs (if applicable): : Not applicable Does the patient have electricity at home? : Yes Does the patient have running water in their house? : Yes Equipment in use: : None Mental health screen: : No mental health history Psychosocial status: : Independent adult (18-64) Abuse/Neglect: : None Resources / Services in place: : None DCP Re-evaluation QUESTION: ANSWER Would patient like to participate in any Care Coordination programs (if applicable): : Not applicable PATIENT: RADHA LOPEZ ENCOUNTER: [id number] MEDICAL RECORD#: [id number] ADMISSION DATE: 01/18/2021 DISCHARGE DATE: 01/19/2021 ATTENDING MD: TIFFANIE: AGE: 30 MARITAL STATUS: S DC PLAN ID: [id number] FACILITY: [facility] PRINTED ON: 01/19/21 19:03 CT All edits/amendments must be made on the electronic document DICTATION DATE: 01/19/211902 MANAGER LINE: ARAM 01/19/211902 RPT#: [id number] DC DATE:01/19/21 STATUS: DIS IN [facility] [address] [place] [address] END OF REPORT
== END 2021-01-19 12:30 | disposition home or self-care (01) ==
LOC: D.ER 14:43 → D.LD 15:11 → OBSVTIME 19:00 → D.LD 01-19 12:30
PROVIDERS: Family Medicine; ADMIT Obstetrics & Gynecology; ATTEND Obstetrics & Gynecology
DX: O03.1 Delayed or excessive hemorrhage following incomplete spontaneous abortion (principal); I95.9 Hypotension, unspecified